=== PATIENT | male | born 1960 | race Hispanic/Latino ===

== ENCOUNTER → 2017-08-10 | Outpatient (CLI) | payer BC ==
--- NOTE | 2017-08-10 14:21 | Diagnostic Imaging Report ---
PROCEDURE:X-RAY LEFT FOOT, COMPLETE COMPARISON:None. INDICATIONS:LEFT FOOT PAIN FINDINGS: 3 views of the left foot (AP, lateral, and oblique) There are no fractures, dislocations, lytic or blastic lesions. The bones are well-mineralized. Small Achilles tendon enthesophyte. CONCLUSION: No acute abnormality of the left foot Dictated by: Arian Tena M.D. on 08/10/2017 at 14:20 Electronically approved by: Arian Tena M.D. on 08/10/2017 at 14:20
== END ==
LOC: RAD 12:56
PROVIDERS: ATTEND Internal Medicine
DX: L40.50 Arthropathic psoriasis, unspecified (principal)

== ENCOUNTER → 2017-10-16 | Day surgery (SDC) | payer BC ==
[~2017-10-16] MED LIST: BUPIVACAINE 0.5%/EPI 30 ML SDV INJ ONE; BUPIVACAINE HCL 0.5% INJ 30 ML VIAL INJ ONE; CEFAZOLIN SOD 1 GM VIAL ONE; DEXAMETHASONE SOD PHOS INJ 4 MG/ML VIAL ONE; FENTANYL CITRATE/PF 100MCG/2 ML INJ ONE; KETOROLAC TROMETHAMINE 30 MG/ML VIAL ONE; LIDOCAINE HCL 2% LOCAL INJ 5 ML SDV VIAL INJ ONE; MIDAZOLAM HCL 2 MG/2 ML VIAL ONE; ONDANSETRON HCL INJ 2 MG/ML VIAL ONE; PROPOFOL IV EMULSION 10 MG/ML 20 ML VIAL ONE; SEVOFLURANE INHAL SOLN 250 ML PEN BTL ONE
--- OUTSIDE RECORDS SUMMARY | 2017-10-16 05:24 | XMS REPORT ---
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 Allergies, Adverse Reactions, Alerts This patient has no known allergies or adverse reactions. Medications This patient has no known medications. Results Test Description Test Time Test Comments Text Results Atomic Results Result Comments FOOT LEFT COMPLETE [place] [address] Patient Name: LIYAH PEREZ MR #: [id number] : 1960 Age/Sex: 57/M Req # : [id number] Adm Physician: Ordered by: BELEN HEATH MD Report #: [id number] Location: [facility] Room/Bed: Procedure: [id number] DX/FOOT LEFT COMPLETE Exam Date: 08/10/17 Exam Time : 1310 REPORT STATUS: Signed PROCEDURE: X-RAY LEFT FOOT, COMPLETE COMPARISON: None. INDICATIONS: LEFT FOOT PAIN FINDINGS: 3 views of the left foot (AP, lateral, and oblique) There are no fractures, dislocations, lytic or blastic lesions. The bones are well- mineralized. Small Achilles tendon enthesophyte. CONCLUSION: No acute abnormality of the left foot Dictated by: Don Tena M.D. on at 14:20 Electronically approved by: Don Tena M.D. on at 14:20 Dictated By: DON TENA MD 1420 Transcribed By: GRACE on 08/10/17 1420 COPY TO: BELEN HEATH MD
--- NOTE | 2017-10-16 09:16 | Operative Report ---
DATE OF PROCEDURE: October 16, 2017 PREOPERATIVE DIAGNOSES 1. Left ankle osteoarthritis with synovitis. 2. Left ankle osteophyte and tibial exostosis. PROCEDURES 1. Left ankle arthroscopy with synovectomy. 2. Left ankle exostectomy. CREDIT UNION MANAGER: Dr. Jeanine DPM ANESTHESIA: General with a postoperative block consisting of 15 mL of 0.5% Marcaine with epinephrine. ESTIMATED BLOOD LOSS: Less than 10 mL. MATERIAL: 3-0 Vicryl, 4-0 Prolene. PATHOLOGY: None. PROCEDURE NOTE: The patient was seen in the preoperative waiting room where the correct procedure and site was identified. The patient was brought into the operating room and placed on the operating table in the supine position. General anesthesia was initiated at this time. A well-padded pneumatic tourniquet was placed about the patient's left thigh. The left foot, ankle and leg was scrubbed, prepped and draped in the usual aseptic manner. The left foot, ankle and leg was exsanguinated with an Esmarch bandage, and the pneumatic thigh tourniquet was inflated to 350 mmHg for a total time of approximately 45 minutes. Attention was directed to the medial aspect of the patient's left ankle where utilizing an 18-gauge needle the ankle joint was distended with 10 mL of 0.5% Marcaine plain. Next, per materials technician protocol Arthrex ankle joint distractor contraption was placed on the lateral aspect of the bed. The strap was placed around the ankle joint, and the ankle joint was adequately distracted. Next, utilizing a 15 blade, 2 incisions were made at the anteromedial aspect of the ankle on the anterolateral aspect of the ankle. Utilizing Manning and Nephew arthroscopy with a 2.7-mm, 30-degree angled scope, the ankle joint was entered to the lateral aspect. Good visualization was noted on the camera. Next, utilizing a 4-mm shaver, it was placed through the anteromedial portal. This was allowed good visualization of the ankle joint. There was noted to be a moderate amount of synovitis to the medial and lateral ankle gutters, as well as anteriorly. Utilizing techniques of triangulation and pistoning, the synovitis was debrided for approximately 30 minutes. Next, all instrumentation was removed from the operative site. A second 3 cm linear incision was made directly over the anterior aspect of the ankle. The incision was carried through the subcutaneous tissues them from deeper underlying structures. All vital neurovascular structures were identified and retracted medially and laterally, and all bleeders were cauterized or ligated as deemed necessary. An arthrotomy was performed of the ankle joint capsule. Utilizing an osteotome, mallet, rongeur, and bur, the anterior dorsal lip of the ankle joint was resected and passed off to the back table. The wound was then flushed with copious amounts of sterile saline. Capsule and deep tissue were approximated with 3-0 Vicryl. Subcutaneous tissue with 3-0 Vicryl and the skin was closed using a running interlocking stitch with 4-0 Prolene. The medial and lateral ankle gutter portals were reapproximated with 1 horizontal mattress suture. The incision site was then dressed with Adaptic, 4 x 4's, Kerlix, En wrap, and a CAM walker boot. The patient tolerated the procedure and anesthesia well. Patient was transferred to the postoperative recovery unit with vital signs stable and vascular status intact. Patient was monitored there for a short period time before being sent home with following written and oral instructions: 1. Keep the dressing clean, dry and intact. 2. The patient is to remain nonweightbearing in a CAM walker boot and to avoid excessive ambulation until being seen in the office. 3. Patient was given the office number and instructed to contact us if any problems should arise. Job#: [id number] PHILIP
== END | disposition home or self-care (01) ==
LOC: OR 05:22
PROVIDERS: ATTEND Podiatrist Foot & Ankle Surgery
DX: M19.072 Primary osteoarthritis, left ankle and foot (principal); M65.872 Other synovitis and tenosynovitis, left ankle and foot; M25.772 Osteophyte, left ankle; M89.9 Disorder of bone, unspecified; Z01.810 Encounter for preprocedural cardiovascular examination; F17.210 Nicotine dependence, cigarettes, uncomplicated
CPT/HCPCS: 27630; 29895; 93005; C1713; J0690; J1100; J1885; J2001; J2250; J2405

== ENCOUNTER → 2018-06-04 | Outpatient (CLI) | payer BC ==
--- NOTE | 2018-06-04 09:06 | Diagnostic Imaging Report ---
TECHNIQUE: Magnetic resonance imaging of the RIGHT KNEE was performed WITHOUT injected contrast. HISTORY: Right knee pain COMPARISON: None available. FINDINGS: LIGAMENTS AND TENDONS: ACL: Intact PCL: Intact Collateral ligaments: Intact Iliotibial band: Unremarkable Popliteal tendon: Intact Extensor mechanism: Extensor mechanism enthesophyte. JOINT: Menisci: Medial: Degenerative signal without discrete tear Lateral: Intact Articular Cartilage: Medial Compartment: No focal defect. Lateral Compartment: No focal defect. Patellofemoral Compartment: High-grade cartilage fissuring at the central trochlea and partial-thickness loss involving the patellar cartilage. Joint Fluid: Small joint effusion and Rashid's cyst. BONE: Subchondral cystic change underlying the trochlear cartilage loss. No acute fracture. SOFT TISSUES: Prepatellar edema IMPRESSION: 1. No acute osseous, ligamentous, or meniscal abnormality. 2. Patellofemoral cartilage loss most prominent at the central trochlea. 3. Prepatellar edema may reflect bursitis. Signed by: Dr. Darius Pennington M.D. on 06/04/2018 9:03 AM
== END ==
LOC: MRI 06:51
PROVIDERS: ATTEND Internal Medicine
DX: M25.561 Pain in right knee (principal)

== ENCOUNTER → 2018-12-08 | Outpatient (CLI) | payer BC ==
--- NOTE | 2018-12-08 13:59 | Diagnostic Imaging Report ---
Exam: Cervical spine AP lateral History: Right-sided pain Comparison: None. Findings: No fracture. 2 mm retrolisthesis of C3 on C4. Multilevel degenerative disc disease throughout the cervical spine with multilevel facet arthrosis. Impression: No acute osseous abnormality Moderate multilevel cervical spondyloarthropathy Signed by: Dr. Darius Pennington M.D. on 12/08/2018 1:55 PM
== END ==
LOC: RAD 12:44
PROVIDERS: ATTEND Internal Medicine
DX: M54.2 Cervicalgia (principal); M79.601 Pain in right arm; G44.89 Other headache syndrome
CPT/HCPCS: 72040

== ENCOUNTER 2024-01-21 14:52 | Emergency (ER) | payer BC ==
[~2024-01-21] VITALS: Ht 165.1 cm; Wt 75.5 kg
[2024-01-21 16:23] VITALS: PULSE 88; RESP 16; TEMP 98.8
[2024-01-21 17:19] LABS: BASOPHILS % 0.4 % (0.0-1.0); EOSINOPHILS # (AUTO) 0.2 (0.0-0.4); EOSINOPHILS % 2.3 % (0.0-6.0); HEMOGLOBIN 14.3 g/dL (14.0-18.0); LYMPHOCYTES % 12.7 % (18.0-39.1); MEAN CORPUSCULAR HEMOGLOBIN 31.2 pg (28-32); MEAN CORPUSCULAR HGB CONC 32.5 g/dL (31-35); MEAN CORPUSCULAR VOLUME 96.1 fL (81-99); MONOCYTES # (AUTO) 0.8 (0.2-0.8); MONOCYTES % 9.9 % (4.4-11.3); NEUTROPHILS # (AUTO) 6.1 (2.1-6.9); NEUTROPHILS % 74.5 % (38.7-80.0); PLATELET COUNT 257 x10e3/uL (140-360); RED BLOOD COUNT 4.58 x10e6/uL (4.3-5.7); WHITE BLOOD COUNT 8.12 x10e3/uL (4.8-10.8)
[2024-01-21 17:46] LABS: ALANINE AMINOTRANSFERASE 15 IU/L (0-55); ALBUMIN 3.7 g/dL (3.5-5.0); ALBUMIN/GLOBULIN RATIO 1.2 (0.8-2.0); ALKALINE PHOSPHATASE 93 IU/L (40-150); BILIRUBIN,TOTAL 0.4 mg/dL (0.2-1.2); BLOOD UREA NITROGEN 12 mg/dL (7-26); BUN/CREATININE RATIO 14 (6-25); CALCIUM 8.7 mg/dL (8.4-10.2); CARBON DIOXIDE 23 mmol/L (22-29); CHLORIDE 106 mmol/L (98-107); CREATINE KINASE 81 IU/L (30-200); CREATININE, SERUM 0.87 mg/dL (0.72-1.25); EST GLOMERULAR FILTRATION RATE 98 ML/MIN (>=60); GLUCOSE 93 mg/dL (74-118); SODIUM 138 mmol/L (136-145); TOTAL PROTEIN 6.7 g/dL (6.5-8.1)
[2024-01-21 17:54] LABS: TROPONIN I < 0.001 ng/mL (0-0.300)
[2024-01-21] MEDS: SODIUM CHLORIDE 0.9% 1000ML 1,000 ML IV ONE (18:58)
[2024-01-21 20:09] VITALS: BP 150/95; PULSE 88; RESP 16; TEMP 98.8; O2SAT 100
== END 2024-01-21 19:51 | disposition home or self-care (01) ==
LOC: ER 15:12
DX: R07.9 Chest pain, unspecified (principal); K40.90 Unilateral inguinal hernia, without obstruction or gangrene, not specified as recurrent; I10 Essential (primary) hypertension; F17.210 Nicotine dependence, cigarettes, uncomplicated
CPT/HCPCS: 36415; 71045; 80053; 82550; 83735; 84484; 85025; 93005; 99284; J7030

== ENCOUNTER 2024-08-15 13:38 | Emergency (ER) | payer BC ==
[~2024-08-15] VITALS: Ht 157.5 cm; Wt 74.8 kg
[2024-08-15 14:04] VITALS: PULSE 79; RESP 18; TEMP 97.9
[2024-08-15] MEDS ORDERED: MECLIZINE HCL12.5 MG PO (15:13)
[2024-08-15 15:18] VITALS: BP 161/76; PULSE 66; RESP 17; TEMP 97.3; O2SAT 98
== END 2024-08-15 15:23 | disposition home or self-care (01) ==
LOC: FSED 14:01
DX: R42 Dizziness and giddiness (principal); R07.9 Chest pain, unspecified; I10 Essential (primary) hypertension; F17.210 Nicotine dependence, cigarettes, uncomplicated
CPT/HCPCS: 84484; 93005; 99283